=== PATIENT | female | born 1990 | race Caucasian/White ===

== ENCOUNTER 2020-09-02 11:24 | Emergency (ER) | payer OTHER ==
[2020-09-02 11:29] VITALS: BP 131/77; PULSE 89; RESP 18; TEMP 98.7
[2020-09-02] MEDS ORDERED: SODIUM CHLORIDE 0.9% 1,000 ML IV STA (12:01)
[2020-09-02 12:18] LABS: Appearance,Urine Clear (Clear); Color,Urine Colorless; Glucose,Urine (UA) Negative (Negative); Protein,Urine Negative (Negative); Specific Gravity,Urine 1.015 (1.001-1.035)
[2020-09-02 12:19] LABS: Bilirubin,Urine Negative (Negative); Blood,Urine Small (Negative); Ketones,Urine Negative (Negative); Leukocyte Esterase,Urine Negative (Negative); Nitrite,Urine Negative (Negative); Urobilinogen,Urine <2.0 mg/dL (<2.0)
[2020-09-02 12:21] LABS: RBC,Urine <1 /hpf (0-5); Squamous Epithelial Cell,Urine <1 /hpf (0-4); WBC,Urine <1 /hpf (0-5)
--- NOTE | 2020-09-02 12:58 | ED ---
General Adult HPI - General Chief complaint: Vaginal Bleeding Stated complaint: 13 weeks preg/bleeding Time Seen by Provider: 09/02/20 11:31 Source: patient, RN notes reviewed Mode of arrival: ambulatory Limitations: no limitations - History of Present Illness Initial comments: 30-year-old female currently 13 weeks presents to the emergency room for chief complaint of vaginal bleeding. Patient states she had a few hours of vaginal bleeding earlier today. Reports that this has since resolved. Also happened a few weeks ago. Patient denies any abdominal pain. Patient did have an ultrasound at [facility] which she reports did show an intrauterine . Patient is trying to get into the [facility] and they're supposed to be calling her back. Patient has no other complaints at this time including shortness of breath, chest pain, abdominal pain, nausea or vomiting, headache, or visual changes - Related Data Home Medications Medication Instructions Recorded Confirmed No Known Home Medications 09/02/20 09/02/20 Allergies Allergy/AdvReac Type Severity Reaction Status Date / Time No Known Allergies Allergy Verified 09/02/20 12:13 Review of Systems ROS Statement: Those systems with pertinent positive or pertinent negative responses have been documented in the HPI. ROS Other: All systems not noted in ROS Statement are negative. Past Medical History Past Medical History: No Reported History History of Any Multi-Drug Resistant Organisms: None Reported Past Surgical History: No Surgical Hx Reported Past Psychological History: No Psychological Hx Reported Smoking Status: Never smoker Past Alcohol Use History: None Reported Past Drug Use History: None Reported General Exam Limitations: no limitations General appearance: alert, in no apparent distress Head exam: Present: atraumatic, normocephalic, normal inspection Eye exam: Present: normal appearance, PERRL, EOMI. Absent: scleral icterus, conjunctival injection, periorbital swelling ENT exam: Present: normal exam, mucous membranes moist Neck exam: Present: normal inspection, full ROM. Absent: tenderness, meningismus, lymphadenopathy Respiratory exam: Present: normal lung sounds bilaterally. Absent: respiratory distress, wheezes, rales, rhonchi, stridor Cardiovascular Exam: Present: regular rate, normal rhythm, normal heart sounds. Absent: systolic murmur, diastolic murmur, rubs, gallop, clicks GI/Abdominal exam: Present: soft, normal bowel sounds. Absent: distended, tenderness, guarding, rebound, rigid External exam: Present: normal external exam. Absent: erythema, swelling, lesions, lacerations, ecchymosis Speculum exam: Present: normal speculum exam. Absent: erythema, vaginal discharge, cervical discharge, vaginal bleeding, foreign body, tissue, laceration By manual exam: Present: normal by manual exam Course Vital Signs 09/02/20 11:26 Temperature 98.7 F Pulse Rate 89 Respiratory 18 Rate Blood Pressure 131/77 O2 Sat by Pulse 97 Oximetry Medical Decision Making - Medical Decision Making Vitals are stable. CBC CMP unremarkable. Urinalysis does not show any obvious evidence of infection. Ultrasound did show a single live intrauterine with a heart rate of 152. Patient is A- blood type, was given RhoGAM. Patient was recommended to follow-up closely with [facility]. If symptoms worsen or she develops heavier bleeding she'll return to the emergency room. Patient denies active bleeding at this time. Patient is currently in contact with Dr. Gil's office but is requesting the name of another [facility] in case they do not accept her. - Lab Data Result diagrams: 09/02/20 12:35 09/02/20 12:35 Lab Results 09/02/20 09/02/20 09/02/20 Range/Units 11:50 12:35 12:35 WBC 9.0 (3.8-10.6) k/uL RBC 4.96 (3.80-5.40) m/uL Hgb 14.0 (11.4-16.0) gm/dL Hct 42.6 (34.0-46.0) % MCV 85.8 (80.0-100.0) fL MCH 28.1 (25.0-35.0) pg MCHC 32.8 (31.0-37.0) g/dL RDW 13.4 (11.5-15.5) % Plt Count 345 (150-450) k/uL MPV 6.8 Neutrophils % 67 % Lymphocytes % 26 % Monocytes % 5 % Eosinophils % 1 % Basophils % 0 % Neutrophils # 6.0 (1.3-7.7) k/uL Lymphocytes # 2.3 (1.0-4.8) k/uL Monocytes # 0.5 (0-1.0) k/uL Eosinophils # 0.1 (0-0.7) k/uL Basophils # 0.0 (0-0.2) k/uL Sodium 136 L (137-145) mmol/L Potassium 4.2 (3.5-5.1) mmol/L Chloride 106 (98-107) mmol/L Carbon Dioxide 23 (22-30) mmol/L Anion Gap 7 mmol/L BUN 8 (7-17) mg/dL Creatinine 0.61 (0.52-1.04) mg/dL Est GFR (CKD-EPI)AfAm >90 (>60 ml/min/1.73 sqM) Est GFR (CKD-EPI)NonAf >90 (>60 ml/min/1.73 sqM) Glucose 85 (74-99) mg/dL Calcium 9.7 (8.4-10.2) mg/dL Total Bilirubin 0.5 (0.2-1.3) mg/dL AST 23 (14-36) U/L ALT 12 (4-34) U/L Alkaline Phosphatase 83 (38-126) U/L Total Protein 7.4 (6.3-8.2) g/dL Albumin 4.5 (3.5-5.0) g/dL Urine Color Colorless Urine Appearance Clear (Clear) Urine pH 7.0 (5.0-8.0) Ur Specific Froid 1.015 (1.001-1.035) Urine Protein Negative (Negative) Urine Glucose (UA) Negative (Negative) Urine Ketones Negative (Negative) Urine Blood Small (Negative) Urine Nitrite Negative (Negative) Urine Bilirubin Negative (Negative) Urine Urobilinogen <2.0 (<2.0) mg/dL Ur Leukocyte Esterase Negative (Negative) Urine RBC <1 (0-5) /hpf Urine WBC <1 (0-5) /hpf Ur Squamous Epith Cells <1 (0-4) /hpf Blood Type Blood Type Recheck Bld Type Recheck Status 09/02/20 Range/Units 12:35 WBC (3.8-10.6) k/uL RBC (3.80-5.40) m/uL Hgb (11.4-16.0) gm/dL Hct (34.0-46.0) % MCV (80.0-100.0) fL MCH (25.0-35.0) pg MCHC (31.0-37.0) g/dL RDW (11.5-15.5) % Plt Count (150-450) k/uL MPV Neutrophils % % Lymphocytes % % Monocytes % % Eosinophils % % Basophils % % Neutrophils # (1.3-7.7) k/uL Lymphocytes # (1.0-4.8) k/uL Monocytes # (0-1.0) k/uL Eosinophils # (0-0.7) k/uL Basophils # (0-0.2) k/uL Sodium (137-145) mmol/L Potassium (3.5-5.1) mmol/L Chloride (98-107) mmol/L Carbon Dioxide (22-30) mmol/L Anion Gap mmol/L BUN (7-17) mg/dL Creatinine (0.52-1.04) mg/dL Est GFR (CKD-EPI)AfAm (>60 ml/min/1.73 sqM) Est GFR (CKD-EPI)NonAf (>60 ml/min/1.73 sqM) Glucose (74-99) mg/dL Calcium (8.4-10.2) mg/dL Total Bilirubin (0.2-1.3) mg/dL AST (14-36) U/L ALT (4-34) U/L Alkaline Phosphatase (38-126) U/L Total Protein (6.3-8.2) g/dL Albumin (3.5-5.0) g/dL Urine Color Urine Appearance (Clear) Urine pH (5.0-8.0) Ur Specific Froid (1.001-1.035) Urine Protein (Negative) Urine Glucose (UA) (Negative) Urine Ketones (Negative) Urine Blood (Negative) Urine Nitrite (Negative) Urine Bilirubin (Negative) Urine Urobilinogen (<2.0) mg/dL Ur Leukocyte Esterase (Negative) Urine RBC (0-5) /hpf Urine WBC (0-5) /hpf Ur Squamous Epith Cells (0-4) /hpf Blood Type A Negative Blood Type Recheck No Previous Record Bld Type Recheck Status ABR ONLY Disposition Clinical Impression: Threatened miscarriage Disposition: HOME SELF-CARE Condition: Good Instructions (If sedation given, give patient instructions): Threatened Miscarriage (ED) Additional Instructions: Please follow up with your OBGYN. Return to the emergency room for any worsening symptoms such as worsening bleeding or abdominal pain. Is patient prescribed a controlled substance at d/c from ED?: No Referrals: Nonstaff,Physician [Primary Care Provider] - 1-2 days Katelin Lozano MD [STAFF PHYSICIAN] - 1-2 days Time of Disposition: 13:29
[2020-09-02 13:17] LABS: ALT 12 U/L (4-34); AST 23 U/L (14-36); African American GFR (CKD) >90 (>60 ml/min/1.73 sqM); Albumin 4.5 g/dL (3.5-5.0); Alkaline Phosphatase 83 U/L (38-126); Anion Gap 7 mmol/L; Blood Urea Nitrogen 8 mg/dL (7-17); Calcium 9.7 mg/dL (8.4-10.2); Carbon Dioxide 23 mmol/L (22-30); Chloride 106 mmol/L (98-107); Glucose 85 mg/dL (74-99); Non-African American GFR(CKD) >90 (>60 ml/min/1.73 sqM); Potassium 4.2 mmol/L (3.5-5.1); Sodium 136 mmol/L (137-145); Total Bilirubin 0.5 mg/dL (0.2-1.3); Total Protein 7.4 g/dL (6.3-8.2)
--- NOTE | 2020-09-02 13:19 | US ---
EXAMINATION TYPE: Transabdominal DATE OF EXAM: 09/02/2020 1:08 PM COMPARISON: NONE CLINICAL HISTORY: pain. Spotting EXAM PERFORMED: Transabdominal (TA) EXAM MEASUREMENTS: GESTATIONAL AGE / DATING Physician Established: (13 weeks/0 days) EDC: 03/10/2021 Dates by LMP: (13 weeks/0 days) EDC: 03/10/2021 Dates by First Scan: No previous this is first scan Dates by Current Scan for: (13 weeks/6 days) EDC: 03/04/2021 MATERNAL ANATOMY Uterus: 16.2 x 6.6 x 12.1 cm Right Ovary: 3.0 x 2.1 x 2.0 cm Left Ovary: 2.6 x 2.2 x 1.3 cm Post CDS / Adnexa: wnl Presence of free fluid: no Presence of corpus luteal cyst: no Presence of subchorionic bleed: no GESTATION / SURVEY CRL: 7.8 cm (13 weeks/6 days) Heart Rate: 152 bpm Rhythm: Normal IUP: Viable IUP Date of LMP: 06/03/2020 Viable IUP with an AAMIR of 03/04/2021 by this exam. This is not an anatomic survey. IMPRESSION: Single live intrauterine with estimated gestational age by sonographic criteria measuring 1 3 weeks and 6 days.
[2020-09-02 13:21] LABS: Basophils % (A) 0 %; Eosinophils # (A) 0.1 k/uL (0-0.7); Eosinophils % (A) 1 %; HCT 42.6 % (34.0-46.0); Lymphocytes # (A) 2.3 k/uL (1.0-4.8); Lymphocytes % (A) 26 %; MCH 28.1 pg (25.0-35.0); MCHC 32.8 g/dL (31.0-37.0); MCV 85.8 fL (80.0-100.0); Mean Platelet Volume 6.8; Monocytes # (A) 0.5 k/uL (0-1.0); Monocytes % (A) 5 %; Neutrophils % (A) 67 %; Platelet Count 345 k/uL (150-450); RBC 4.96 m/uL (3.80-5.40); RDW 13.4 % (11.5-15.5)
[2020-09-02] MEDS ORDERED: Rhogam IMMUNE GLOBULIN 1,500 UNIT/1 ML IM STA (13:25)
[2020-09-02 14:20] LABS: HCG,Quantitative Serum 39011.6 mIU/mL
== END 2020-09-02 14:23 | disposition home or self-care (01) ==
LOC: EC 11:24
DX: O20.0 Threatened abortion (principal); Z3A.13 13 weeks gestation of pregnancy
CPT/HCPCS: 36415; 86900; 86901; 80053; 85025; 86850; 81001; 84702; 76801; 99284; 96360; 96372; J2790

== ENCOUNTER → 2020-10-03 | Outpatient (CLI) | payer SELFPAY ==
[2020-10-03 20:22] LABS: HIV 2 AB Non-Reactive (Non-Reactive); HIV AB P24 Non-Reactive (Non-Reactive); HIV P24 AG Non-Reactive (Non-Reactive)
[2020-10-03 20:24] LABS: Hemoglobin A1C 4.7 % (4.0-6.0)
[2020-10-04 05:09] LABS: Hepatitis B Surface Antigen Non-Reactive (Non-Reactive)
== END | disposition home or self-care (01) ==
LOC: LABWHC1 12:19
PROVIDERS: ATTEND Obstetrics & Gynecology
DX: Z34.02 Encounter for supervision of normal first pregnancy, second trimester (principal); Z3A.00 Weeks of gestation of pregnancy not specified
CPT/HCPCS: 36415; 82950; 83036; 86762; 86780; 86850; 86870; 86880; 86900; 86901; 87340; 87390